=== PATIENT | female | born 1935 | race Asian ===

== ENCOUNTER 2018-06-02 06:33 | Inpatient (IN) | payer OTHER, MEDICARE ==
[2018-06-02] MEDS: LACTATED RINGER'S 1,000 ML IV ×2 (06:30→15:36)
[2018-06-02] MEDS ORDERED: TRANEXAMIC ACID 1 GM/100 ML (PMX) (07:00)
[2018-06-02] MEDS: ACETAMINOPHEN 500 MG TAB PO (07:31)
[2018-06-02] MEDS: DEXAMETHASONE 4 MG/ML 1 ML INJ IV (07:31)
[2018-06-02] MEDS ORDERED: PROPOFOL 20 ML (09:04)
[2018-06-02] MEDS ORDERED: LIDOCAINE 2% (SDV) 5 ML INJ (09:04)
[2018-06-02] MEDS ORDERED: FENTAnyl 50 MCG/ML VIAL (09:04)
[2018-06-02] MEDS ORDERED: ROPIVACAINE 0.2% 20 ML VIAL (09:24)
[2018-06-02] MEDS ORDERED: ONDANSETRON 4 MG INJ (09:44)
[2018-06-02] MEDS ORDERED: FAMOTIDINE 20 MG INJ (09:44)
[2018-06-02] MEDS: TRANEXAMIC ACID 1GM/100ML(PMX) 100 ML AT INCISION X1 IVPB (09:45)
[2018-06-02] MEDS: CEFAZOLIN 2 GM/50 ML (PMX) 50 ML (FOR WT < 120 KG) IVPB (09:48)
[2018-06-02] MEDS: POLYMYXIN B 500000 UNIT INJ (09:54)
[2018-06-02] MEDS: BACITRACIN 50000 UNITS INJ (09:54)
[2018-06-02] MEDS ORDERED: ROCURONIUM 50 MG INJ (10:01)
[2018-06-02] MEDS ORDERED: EPHEDrine 25 MG/5 ML SYG (10:02)
[2018-06-02] MEDS: TRANEXAMIC ACID 1GM/100ML(PMX) 100 ML AT CLOSURE X1 IVPB (10:45)
[2018-06-02] MEDS ORDERED: KETOROLAC 15 MG INJ IV (11:00)
[2018-06-02] MEDS ORDERED: oxyCODONE 5 MG TAB PO ×2 (11:00)
[2018-06-02] MEDS ORDERED: NACL 0.9% 3 ML SYG IV ×2 (11:00→15:00)
[2018-06-02] MEDS ORDERED: NALOXONE (0.4 MG/ML) INJ IV (11:00)
[2018-06-02] MEDS ORDERED: GLYCOPYRROLATE 0.4 MG INJ (11:03)
[2018-06-02] MEDS ORDERED: NEOSTIGMINE 10 MG INJ (11:03)
[2018-06-02] MEDS ORDERED: EPHEDrine SULFATE 50 MG/5 ML SYG IV (12:00)
[2018-06-02] MEDS ORDERED: DIPHENHYDRAMINE 50 MG INJ IV (12:00)
[2018-06-02] MEDS ORDERED: HYDROmorphONE 1 MG/5 ML IV SYRINGE IV (12:00)
[2018-06-02] MEDS ORDERED: ONDANSETRON 4 MG INJ IV (12:00)
[2018-06-02] MEDS ORDERED: hydrALAzine 20 MG INJ IV (12:00)
[2018-06-02] MEDS ORDERED: LABETALOL HCL 20MG INJ IV (12:00)
[2018-06-02] MEDS ORDERED: MEPERIDINE 25 MG INJ IV (12:00)
[2018-06-02] MEDS: CEFAZOLIN 2 GM/50 ML (PMX) 50 ML IVPB ×2 (12:21→19:19)
[2018-06-02] MEDS: GABAPENTIN 100 MG CAP PO ×2 (13:00→20:47)
[2018-06-02] MEDS: HYDROmorphONE 1 MG/5 ML IV SYRINGE IV (13:40)
[2018-06-02] MEDS: FENTAnyl 50 MCG/ML VIAL IV (13:41)
[2018-06-02] MEDS: TAMSULOSIN (SR) 0.4 MG CAP PO (15:36)
[2018-06-02] MEDS: ONDANSETRON 4 MG INJ IV (15:38)
[2018-06-02 15:59] LABS: ADD UMIC NO; UR ASCORBIC ACID NEGATIVE (NEGATIVE); UR BILIRUBIN (Dip) NEGATIVE (NEGATIVE); UR BLOOD (Dip) NEGATIVE (NEGATIVE); UR CLARITY CLEAR (CLEAR); UR COLOR STRAW (YELLOW); UR GLUCOSE (Dip) NEGATIVE (NEGATIVE); UR KETONES (Dip) NEGATIVE (NEGATIVE); UR LEUKOCYTE ESTERASE (Dip) NEGATIVE Leu/ul (NEGATIVE); UR NITRITE (Dip) NEGATIVE (NEGATIVE); UR SPECIFIC GRAVITY (Dip) 1.012 (1.003-1.030); UR TOTAL PROTEIN (Dip) NEGATIVE (NEGATIVE); UR UROBILINOGEN (Dip) NEGATIVE (NEGATIVE)
[2018-06-02] MEDS: CYCLOSPORINE 0.05% OPH DROPERETTE BOTH EYES (20:36)
[2018-06-02] MEDS: ATORVASTATIN 80 MG TAB PO (20:49)
[2018-06-03] MEDS: LACTATED RINGER'S 1,000 ML IV ×2 (00:09→11:56)
[2018-06-03] MEDS: CEFAZOLIN 2 GM/50 ML (PMX) 50 ML IVPB (03:21)
[2018-06-03] MEDS: ACETAMINOPHEN 325 MG TAB PO ×2 (03:24→15:46)
[2018-06-03 05:24] LABS: ADD MAN DIFF? NO
[2018-06-03 05:26] LABS: WHITE BLOOD COUNT 11.9 10^3/ul (4.8-10.8)
[2018-06-03 05:26] LABS: BASOPHILS % 0.1 % (0.0-2.0); HEMATOCRIT 22.1 % (37.0-47.0); HEMOGLOBIN 7.4 g/dl (12.0-16.0); LYMPHOCYTES % 8.2 % (15.0-51.0); MEAN CORPUSCULAR HGB CONC 33.5 g/dl (32.0-37.0); MEAN CORPUSCULAR VOLUME 95.7 fl (82.0-101.0); MEAN PLATELET VOLUME 9.7 fl (7.4-10.4); MONOCYTE # 0.6 10^3/ul (0.3-0.9); MONOCYTES % 5.4 % (0.0-11.0); NEUTROPHIL # 10.2 10^3/ul (1.6-7.5); NEUTROPHILS % 85.8 % (39.0-77.0); PLATELET COUNT 167 10^3/UL (140-415); RED BLOOD COUNT 2.31 10^6/ul (4.20-5.40); RED CELL DISTRIBUTION WIDTH 13.3 % (11.5-14.5)
[2018-06-03 05:50] LABS: CHOL/HDL RATIO 1.7 RATIO; CHOLESTEROL 98 mg/dl (100-200); HDL CHOLESTEROL 57 mg/dl (33-92); LDL CHOLESTEROL,CALCULATED 29 mg/dl; TRIGLYCERIDES 62 mg/dl (0-149)
[2018-06-03 05:50] LABS: MAGNESIUM 1.5 mg/dl (1.7-2.5)
[2018-06-03 05:55] LABS: ANION GAP 11 (5-13); BLOOD UREA NITROGEN 15 mg/dl (7-20); CALCIUM 8.6 mg/dl (8.4-10.2); CARBON DIOXIDE 24 mmol/L (21-31); CHLORIDE 100 mmol/L (97-110); CREATININE 0.62 mg/dl (0.44-1.00); GLUCOSE 131 mg/dl (70-220); POTASSIUM 4.5 mmol/L (3.5-5.1); SODIUM 135 mmol/L (135-144)
[2018-06-03 06:58] LABS: HEMOGLOBIN A1C 6.4 % (0-5.9)
[2018-06-03] MEDS: GABAPENTIN 100 MG CAP PO ×3 (09:00→20:30)
[2018-06-03] MEDS: NEBIVOLOL 5 MG TAB PO (09:16)
[2018-06-03] MEDS: ASPIRIN (EC) 81 MG TAB PO ×2 (09:16→20:34)
[2018-06-03] MEDS: DOCUSATE SODIUM 100 MG CAP PO ×2 (09:16→20:34)
[2018-06-03] MEDS: CELECOXIB 100 MG CAP PO ×2 (09:16→20:34)
[2018-06-03] MEDS: CYCLOSPORINE 0.05% OPH DROPERETTE BOTH EYES ×2 (09:17→20:34)
[2018-06-03] MEDS: AMLODIPINE 5 MG TAB PO (09:17)
[2018-06-03] MEDS: MAGNESIUM SULFATE 2 GM/50 ML 50 ML IVPB (13:02)
[2018-06-03] MEDS: ATORVASTATIN 80 MG TAB PO (20:34)
[2018-06-04] MEDS: LACTATED RINGER'S 1,000 ML IV ×2 (00:26→12:19)
[2018-06-04] MEDS: ACETAMINOPHEN 325 MG TAB PO ×2 (01:21→16:31)
[2018-06-04 05:14] LABS: ADD MAN DIFF? NO
[2018-06-04 05:21] LABS: WHITE BLOOD COUNT 7.2 10^3/ul (4.8-10.8)
[2018-06-04 05:21] LABS: ABNORMAL IP MESSAGE 1; BASOPHILS % 0.3 % (0.0-2.0); EOSINOPHILS # 0.1 10^3/ul (0.0-0.5); EOSINOPHILS % 0.7 % (0.0-7.0); LYMPHOCYTES # 1.5 10^3/ul (0.8-2.9); LYMPHOCYTES % 20.3 % (15.0-51.0); MEAN CORPUSCULAR HEMOGLOBIN 32.1 pg (29.0-33.0); MEAN CORPUSCULAR VOLUME 94.3 fl (82.0-101.0); MEAN PLATELET VOLUME 9.6 fl (7.4-10.4); MONOCYTE # 0.6 10^3/ul (0.3-0.9); MONOCYTES % 8.3 % (0.0-11.0); NEUTROPHIL # 5.1 10^3/ul (1.6-7.5); NEUTROPHILS % 69.8 % (39.0-77.0); PLATELET COUNT 168 10^3/UL (140-415); RED BLOOD COUNT 2.12 10^6/ul (4.20-5.40); RED CELL DISTRIBUTION WIDTH 13.5 % (11.5-14.5)
[2018-06-04 05:50] LABS: ANION GAP 6 (5-13); BLOOD UREA NITROGEN 15 mg/dl (7-20); CALCIUM 8.5 mg/dl (8.4-10.2); CARBON DIOXIDE 29 mmol/L (21-31); CHLORIDE 103 mmol/L (97-110); CREATININE 0.92 mg/dl (0.44-1.00); GLUCOSE 116 mg/dl (70-220); POTASSIUM 4.6 mmol/L (3.5-5.1); SODIUM 138 mmol/L (135-144)
[2018-06-04 05:54] LABS: POSITIVE DIFF @See below
[2018-06-04 05:55] LABS: HEMOGLOBIN 6.8 g/dl (12.0-16.0)
[2018-06-04] MEDS: PANTOPRAZOLE (EC) 40 MG TAB PO (06:10)
[2018-06-04] MEDS: ASPIRIN (EC) 81 MG TAB PO ×2 (08:37→21:10)
[2018-06-04] MEDS: NEBIVOLOL 5 MG TAB PO (08:37)
[2018-06-04] MEDS: AMLODIPINE 5 MG TAB PO (08:38)
[2018-06-04] MEDS: CELECOXIB 100 MG CAP PO ×2 (08:38→21:09)
[2018-06-04] MEDS: DOCUSATE SODIUM 100 MG CAP PO ×2 (08:38→21:10)
[2018-06-04] MEDS: CYCLOSPORINE 0.05% OPH DROPERETTE BOTH EYES ×2 (08:38→21:09)
[2018-06-04] MEDS: GABAPENTIN 100 MG CAP PO ×3 (08:40→20:06)
[2018-06-04 10:11] LABS: IMMEDIATE SPIN CROSSMATCH 1 1
[2018-06-04] MEDS: ATORVASTATIN 80 MG TAB PO (21:09)
[2018-06-04] MEDS: MAGNESIUM HYDROXIDE 30ML CUP PO (21:10)
[2018-06-05] MEDS: LACTATED RINGER'S 1,000 ML IV ×2 (01:26→13:56)
[2018-06-05 05:00] LABS: ADD MAN DIFF? NO
[2018-06-05 05:03] LABS: BASOPHILS % 0.3 % (0.0-2.0); EOSINOPHILS # 0.1 10^3/ul (0.0-0.5); EOSINOPHILS % 0.7 % (0.0-7.0); HEMATOCRIT 27.5 % (37.0-47.0); HEMOGLOBIN 9.3 g/dl (12.0-16.0); LYMPHOCYTES # 1.3 10^3/ul (0.8-2.9); LYMPHOCYTES % 16.6 % (15.0-51.0); MEAN CORPUSCULAR HEMOGLOBIN 31.5 pg (29.0-33.0); MEAN CORPUSCULAR HGB CONC 33.8 g/dl (32.0-37.0); MEAN CORPUSCULAR VOLUME 93.2 fl (82.0-101.0); MEAN PLATELET VOLUME 9.3 fl (7.4-10.4); MONOCYTE # 0.5 10^3/ul (0.3-0.9); MONOCYTES % 7.2 % (0.0-11.0); NEUTROPHIL # 5.6 10^3/ul (1.6-7.5); NEUTROPHILS % 74.5 % (39.0-77.0); PLATELET COUNT 178 10^3/UL (140-415); RED BLOOD COUNT 2.95 10^6/ul (4.20-5.40); RED CELL DISTRIBUTION WIDTH 13.6 % (11.5-14.5)
[2018-06-05 05:03] LABS: WHITE BLOOD COUNT 7.5 10^3/ul (4.8-10.8)
[2018-06-05 05:28] LABS: ANION GAP 4 (5-13); BLOOD UREA NITROGEN 11 mg/dl (7-20); CALCIUM 8.9 mg/dl (8.4-10.2); CARBON DIOXIDE 29 mmol/L (21-31); CHLORIDE 105 mmol/L (97-110); CREATININE 0.59 mg/dl (0.44-1.00); GLUCOSE 120 mg/dl (70-220); POTASSIUM 4.3 mmol/L (3.5-5.1); SODIUM 138 mmol/L (135-144)
[2018-06-05] MEDS: PANTOPRAZOLE (EC) 40 MG TAB PO (06:28)
[2018-06-05] MEDS: NEBIVOLOL 5 MG TAB PO (08:14)
[2018-06-05] MEDS: DOCUSATE SODIUM 100 MG CAP PO (08:14)
[2018-06-05] MEDS: ASPIRIN (EC) 81 MG TAB PO (08:15)
[2018-06-05] MEDS: GABAPENTIN 100 MG CAP PO ×2 (08:15→12:14)
[2018-06-05] MEDS: AMLODIPINE 5 MG TAB PO (08:15)
[2018-06-05] MEDS: CELECOXIB 100 MG CAP PO (08:15)
[2018-06-05] MEDS: CYCLOSPORINE 0.05% OPH DROPERETTE BOTH EYES (08:15)
[2018-06-05] MEDS: ACETAMINOPHEN 325 MG TAB PO (12:52)
== END 2018-06-05 16:05 | disposition home health service (06) | DRG 470 ==
LOC: REC 06:33 → MS1 14:00
PROC: 0SRC0J9 Replacement of Right Knee Joint with Synthetic Substitute, Cemented, Open Approach (ICD-10-PCS; principal; 2018-06-02 08:30)
DX: M17.11 Unilateral primary osteoarthritis, right knee (principal); I10 Essential (primary) hypertension; E78.5 Hyperlipidemia, unspecified; R33.9 Retention of urine, unspecified; Z79.82 Long term (current) use of aspirin; Z87.891 Personal history of nicotine dependence
CPT/HCPCS: 36430; 73560; 80048; 80061; 81003; 83036; 83735; 85025; 86850; 86900; 86901; 86920; 87081; 87086; 88304; 88311; 97110; 97116; 97162; 97530